=== PATIENT | male | born 1950 | race Caucasian/White ===

== ENCOUNTER → 2024-04-19 10:22 | Outpatient (REF) | payer OTHER, SELFPAY | LOC: WDC 10:22 | PROVIDERS: ATTENDING PHYSICIAN Nurse Practitioner | DX: N63.10 Unspecified lump in the right breast, unspecified quadrant (principal); N63.41 Unspecified lump in right breast, subareolar | CPT/HCPCS: 76642; 77062; 77066 ==

== ENCOUNTER → 2024-04-25 11:26 | Outpatient (REF) | payer OTHER, SELFPAY ==
--- NOTE | 2024-04-25 13:46 | OID.BR.INTR ---
[facility] Breast Navigator - Initial
- -
Date of Contact: 04/25/24
Met with patient. Patient given written information on navigator services available at [facility]. Will follow up as needed per protocol.
== END ==
LOC: WDC 11:26
PROVIDERS: ATTENDING PHYSICIAN Nurse Practitioner
DX: N63.41 Unspecified lump in right breast, subareolar (principal)
CPT/HCPCS: 88305; 19083; 88341; 88342; 88360; A4648